=== PATIENT | male | born 1960 | race Caucasian/White ===

== ENCOUNTER 2017-09-14 17:15 | Emergency (ER) | payer OTHER ==
[2017-09-14 17:23] VITALS: BP 159/97
--- NOTE | 2017-09-14 18:01 | EDPHY ---
H & P Stated Complaint: SOB, CP Time Seen by Provider: 09/14/17 17:50 HPI/ROS: CHIEF COMPLAINT: Positive D-dimer HISTORY OF PRESENT ILLNESS: The patient is a 57-year-old man with no significant medical history who saw his primary today and complained of intermittent sharp pain in his sternum over the last 2 years. He states that it hurts primarily when he twists or turns. He is him to was musculoskeletal. He states that it only happens for about a 2nd or less and then it is gone. He has not had any symptoms today. His last symptoms were it happened twice 3 days ago. No fever. No cough. No shortness of breath. No diaphoresis. No lightheadedness. No palpitations. The patient saw his primary today who tore and lab work including a troponin which is negative and a D-dimer which was 0.57. He was sent here for CT scan to rule out PE. REVIEW OF SYSTEMS: Constitutional: denies: chills, fever, recent illness, recent injury EENTM: denies: blurred vision, double vision, nose congestion Respiratory: See HPI denies: cough, shortness of breath Cardiac: See HPI denies: chest pain today, irregular heart rate, lightheadedness, palpitations Gastrointestinal/Abdominal: denies: abdominal pain, diarrhea, nausea, vomiting, blood streaked stools Genitourinary: denies: dysuria, frequency, hematuria, pain Musculoskeletal: denies: joint pain, muscle pain Skin: denies: lesions, rash, jaundice, bruising Neurological: denies: headache, numbness, paresthesia, tingling, dizziness, weakness Hematologic/Lymphatic: denies: blood clots, easy bleeding, easy bruising Immunologic/allergic: denies: HIV/AIDS, transplant EXAM: GENERAL: Well-appearing, well-nourished and in no acute distress. HEAD: Atraumatic, normocephalic. EYES: Pupils equal round and reactive to light, extraocular movements intact, sclera anicteric, conjunctiva are normal. ENT: TMs normal, nares patent, oropharynx clear without exudates. Moist mucous membranes. NECK: Normal range of motion, supple without lymphadenopathy or JVD. LUNGS: Breath sounds clear to auscultation bilaterally and equal. No wheezes rales or rhonchi. HEART: Regular rate and rhythm without murmurs, rubs or gallops. ABDOMEN: Soft, nontender, normoactive bowel sounds. No guarding, no rebound. No masses appreciated. BACK: No CVA tenderness, no spinal tenderness, step-offs or deformities EXTREMITIES: Normal range of motion, no pitting or edema. No clubbing or cyanosis. NEUROLOGICAL: Cranial nerves II through XII grossly intact. Normal speech, normal gait. 5/5 strength, normal movement in all extremities, normal sensation PSYCH: Normal mood, normal affect. SKIN: Warm, dry, normal turgor, no visible rashes or lesions. Source: Patient Exam Limitations: No limitations - Personal History Current Tetanus/Diphtheria Vaccine: Unsure Current Tetanus Diphtheria and Acellular Pertussis (TDAP): Unsure - Medical/Surgical History Hx Asthma: No Hx Chronic Respiratory Disease: No Hx Diabetes: No Hx Cardiac Disease: No Hx Renal Disease: No Hx Cirrhosis: No Hx Alcoholism: No Hx HIV/AIDS: No Hx Splenectomy or Spleen Trauma: No Other PMH: padmini, ortho surgery - Family History Significant Family History: No pertinent family hx - Social History Smoking Status: Never smoked Alcohol Use: Sober Drug Use: None Constitutional: Initial Vital Signs Temperature (C) 37.2 C 09/14/17 17:20 Heart Rate 79 09/14/17 17:20 Respiratory Rate 16 09/14/17 17:20 Blood Pressure 159/97 H 09/14/17 17:20 O2 Sat (%) 96 09/14/17 17:20 O2 Delivery Mode Room Air Allergies/Adverse Reactions: Penicillins Allergy (Verified 09/14/17 17:20) Home Medications: Medication Instructions Recorded Cias 09/14/17 Gabapentin 09/14/17 Medical Decision Making - Diagnostics Imaging Results: Imaging Impressions Chest/Thorax CTA 09/14/17 17:55 Impression: 1. No evidence of pulmonary embolic disease. 2. A few scattered areas of ground-glass opacity bilaterally in a 57-year-old male reported to be a nonsmoker. If there are clinical findings to suggest an infectious process, follow up could be considered. 3. See above report for additional findings. Results called and discussed with Souleymane Karimi M.D., on 09/14/2017 at 18:47. Imaging: Discussed imaging studies w/ insurance adjustor Radiologist ED Course/Re-evaluation: We discussed the CT results. The patient has remote history of smoking. He has not smoked for more than 35 years. He is for relieved. They are eager to go home. They will follow up with her primary for repeat CT scan as discussed. He is currently asymptomatic. Differential Diagnosis: Partial list of the Differential diagnosis considered include but were not limited to; chest pain, musculoskeletal pain, PE and although unlikely based on the history and physical exam, I also considered dissection, infection, pneumothorax. I discussed these differential diagnoses and the plan with the patient as well as the usual and expected course. The patient understands that the diagnosis is provisional and that in medicine we are not always correct and that further workup is often warranted. Usual and customary warnings were given. All of the patient's questions were answered. The patient was instructed to return to the emergency department should the symptoms at all worsen or return, otherwise to followup with the physician as we discussed. Departure - Departure Disposition: Home, Routine, Self-Care Clinical Impression: Chronic chest wall pain Condition: Fair Instructions: Chest Wall Pain (ED) Referrals: Praveen Graves MD [Primary Care Provider] - As per Instructions
[2017-09-14] MEDS ORDERED: IOPAMIDOL (ISOVUE 370) 100 ML BTL IV ONE (18:09)
== END 2017-09-14 19:04 | disposition home or self-care (01) ==
DX: R07.89 Other chest pain (principal); G89.29 Other chronic pain
CPT/HCPCS: Q9967